=== PATIENT | female | born 1970 | race Caucasian/White ===

== ENCOUNTER → 2021-01-11 | Outpatient (CLI) | payer BC | LOC: MC.RAD 10:57 | DX: Z12.31 Encounter for screening mammogram for malignant neoplasm of breast (principal) ==

== ENCOUNTER → 2021-08-29 | Outpatient (CLI) | payer BC | LOC: COL.RAD 12:41 | DX: H57.11 Ocular pain, right eye (principal) | CPT/HCPCS: A9585 ==